=== PATIENT | male | born 1990 ===

== ENCOUNTER 2021-10-26 05:54 | Day surgery (SDC) | payer OTHER ==
[~2021-10-26 05:54] MED LIST: PROVENTIL HFA6.7 GM; SINGULAIR10 MG
== END 2021-10-26 10:00 | disposition home or self-care (01) ==
LOC: CIR.AMB 05:54
PROVIDERS: ATTEND Surgery
DX: K62.89 Other specified diseases of anus and rectum (principal); K64.8 Other hemorrhoids; Z20.822 Contact with and (suspected) exposure to COVID-19